=== PATIENT | male | born 1965 | race Two or more races ===

== ENCOUNTER 2019-09-05 00:35 | Emergency (ER) | payer OTHER, MEDICAID ==
[~2019-09-05] VITALS: Ht 167.6 cm; Wt 81.8 kg
[2019-09-05] MEDS ORDERED: PERTUSS(ACELL),DIPH,TET VAC/PF 0.5 ML VIAL IM ONE (02:15)
[2019-09-05] MEDS ORDERED: HYDROCODONE/ACETAMINOPHEN 5-325 MG TABLET PO ONE (02:15)
[2019-09-05] MEDS ORDERED: SIMV-259 PO (02:59)
[2019-09-05 04:37] VITALS: BP 144/84
== END 2019-09-05 05:07 | disposition home or self-care (01) ==
LOC: EMS 00:36
DX: S01.01XA Laceration without foreign body of scalp, initial encounter (principal); Y04.2XXA Assault by strike against or bumped into by another person, initial encounter; Y93.89 Activity, other specified; Y92.69 Other specified industrial and construction area as the place of occurrence of the external cause; Y99.0 Civilian activity done for income or pay
CPT/HCPCS: 12002; 70450; 90471; 90715